=== PATIENT | male | born 1985 | race African-American/Black ===

== ENCOUNTER 2024-07-01 20:15 | Emergency (ER) | payer MEDICAID ==
[~2024-07-01] VITALS: Ht 165.1 cm; Wt 64.0 kg
[2024-07-01 20:22] VITALS: O2SAT 99
[2024-07-01 20:27] VITALS: O2SAT 99
[2024-07-01 21:36] LABS: BASOPHILS % 0.4 % (0.0-2.0); EOSINOPHILS % 6.5 % (0.0-5.0); HEMATOCRIT. 43.7 % (42.0-52.0); HEMOGLOBIN. 14.6 g/dL (14.0-18.0); LYMPHOCYTES % 31.7 % (20.0-50.0); MEAN CORPUSCULAR HEMOGLOBIN 30.5 pg (28.0-32.0); MEAN CORPUSCULAR HGB CONC 33.3 g/dL (31.0-37.0); MEAN CORPUSCULAR VOLUME 91.6 fL (80.0-94.0); MEAN PLATELET VOLUME 8.1 fl (7.4-10.4); MONOCYTES % 10.7 % (2.0-8.0); NEUTROPHILS % 50.7 % (40.0-76.0); PLATELET 225 x1000/uL (130-400); RED BLOOD CELL COUNT 4.77 mill/uL (4.7-6.1); WHITE BLOOD COUNT 9.3 x1000/uL (4.5-11.0)
[2024-07-01 21:41] LABS: CHLORIDE 111 mEq/L (98-107); POTASSIUM 4.1 mEq/L (3.5-5.1); SODIUM 144 mEq/L (136-145)
[2024-07-01 21:43] LABS: CALCIUM 9.4 mg/dL (8.7-10.4); CARBON DIOXIDE 27 mEq/L (21-32)
[2024-07-01 21:48] LABS: CREATININE 0.9 mg/dL (0.6-1.3); GLUCOSE 90 mg/dL (70-105); UREA NITROGEN BLOOD 10 mg/dL (9-23)
[2024-07-01 21:50] LABS: ALANINE AMINOTRANSFERASE 11 IU/L (10-49); ALBUMIN 4.6 g/dL (3.2-4.8); ASPARTATE AMINOTRANSFERASE 17 IU/L (<34); BILIRUBIN DIRECT 0.1 mg/dL (<=3.0); BILIRUBIN TOTAL 0.4 mg/dL (0.1-1.0); PROTEIN TOTAL 7.5 g/dL (6.0-8.3)
[2024-07-01] MEDS ORDERED: ONDANSETRON HCL 4MG/2ML INJ IV STA (22:23)
[2024-07-01] MEDS ORDERED: KETOROLAC 30MG/ML VIAL IV STA (22:23)
[2024-07-01 23:21] LABS: TROPONIN I HIGH SENSITIVITY < 4 ng/L (3.0-53)
[2024-07-02] MEDS: SODIUM CHLORIDE 0.9% 1,000 ML IV ONE (00:55)
[2024-07-02] MEDS: ONDANSETRON HCL 4MG/2ML INJ IV NR (00:56)
[2024-07-02] MEDS: KETOROLAC 30MG/ML VIAL IV NR (00:56)
[2024-07-02 01:32] LABS: CLARITY URINE CLEAR (CLEAR); COLOR URINE YELLOW (YELLOW); GLUCOSE URINE NEGATIVE (NEGATIVE); KETONES URINE NEGATIVE (NEGATIVE); LEUKOCYTE ESTERASE URINE NEGATIVE (NEGATIVE); NITRITE URINE NEGATIVE (NEGATIVE); OCCULT BLOOD URINE NEGATIVE (NEGATIVE); PH URINE 5.5 (4.5-8.0); PROTEIN URINE TRACE (NEGATIVE); SPECIFIC GRAVITY URINE 1.034 (1.005-1.030); UROBILINOGEN URINE 0.2 E.U./dL (0.2-1.0)
[2024-07-02] MEDS: MORPHINE SULFATE 4 MG/ML INJ (FOR IV/IM USE) IV ONE (01:45)
[2024-07-02] MEDS ORDERED: NAPR-681 MT (01:49)
[2024-07-02] MEDS ORDERED: BENZ100C86 MT (01:49)
[2024-07-02] MEDS ORDERED: TAMS-11 MT (01:49)
[2024-07-02 02:15] VITALS: BP 125/89; PULSE 77; RESP 16; TEMP 36.66960
[2024-07-02 02:22] LABS: RBC URINE 0-2 /hpf (0-2); SQUAMOUS EPITHELIAL CELL URINE 1+ /lpf (RARE/1+)
[2024-07-02 02:33] LABS: BACTERIA URINE TRACE
== END 2024-07-02 02:15 | disposition home or self-care (01) ==
LOC: ER 20:44
DX: N20.0 Calculus of kidney (principal); B34.9 Viral infection, unspecified; J45.909 Unspecified asthma, uncomplicated; Z79.1 Long term (current) use of non-steroidal anti-inflammatories (NSAID)
CPT/HCPCS: 99285; 74176; 71045; 80076; 80048; 85025; 86850; 86900; 86901; 84484; 93005; 96374; 96375; 96361; 81003; 36415; J7030; J1885; J2405; J2270

== ENCOUNTER 2024-12-01 14:35 | Emergency (ER) | payer MEDICAID ==
[~2024-12-01] VITALS: Ht 167.6 cm; Wt 74.8 kg
[~2024-12-01 14:35] MED LIST: BENZ100C86 MT; NAPR-681 MT; TAMS-54 MT
[2024-12-01 14:43] VITALS: TEMP 36.7; O2SAT 100
[2024-12-01 15:50] LABS: BASOPHILS % 0.3 % (0.0-2.0); EOSINOPHILS % 0.3 % (0.0-5.0); HEMATOCRIT. 47.2 % (42.0-52.0); HEMOGLOBIN. 15.6 g/dL (14.0-18.0); LYMPHOCYTES % 26.5 % (20.0-50.0); MEAN CORPUSCULAR HEMOGLOBIN 30.1 pg (28.0-32.0); MEAN CORPUSCULAR VOLUME 91.4 fL (80.0-94.0); MEAN PLATELET VOLUME 8.3 fl (7.4-10.4); MONOCYTES % 6.8 % (2.0-8.0); NEUTROPHILS % 66.1 % (40.0-76.0); PLATELET 227 x1000/uL (130-400); RED BLOOD CELL COUNT 5.16 mill/uL (4.7-6.1); RED CELL DISTRIBUTION WIDTH 13.4 % (11.6-14.6); WHITE BLOOD COUNT 11.8 x1000/uL (4.5-11.0)
[2024-12-01 15:57] LABS: CHLORIDE 107 mEq/L (98-107); POTASSIUM 4.1 mEq/L (3.5-5.1); SODIUM 141 mEq/L (136-145)
[2024-12-01 15:58] LABS: CARBON DIOXIDE 26 mEq/L (21-32)
[2024-12-01 16:03] LABS: CREATININE 1.1 mg/dL (0.6-1.3); GLUCOSE 95 mg/dL (70-105); UREA NITROGEN BLOOD 9 mg/dL (9-23)
[2024-12-01 16:05] LABS: ALANINE AMINOTRANSFERASE 11 IU/L (10-49); ALBUMIN 4.6 g/dL (3.2-4.8); ASPARTATE AMINOTRANSFERASE 18 IU/L (<34)
[2024-12-01 16:06] LABS: BILIRUBIN DIRECT 0.1 mg/dL (<=3.0); BILIRUBIN TOTAL 0.5 mg/dL (0.1-1.0)
[2024-12-01] MEDS ORDERED: BUPR1FIL7 SL (17:00)
[2024-12-01] MEDS: BUPRENORPHINE 8MG SL TABLET SL ONE (17:18)
[2024-12-01 17:36] VITALS: BP 119/75; PULSE 84; RESP 16; O2SAT 100
[2024-12-01] MEDS ORDERED: BUPR1FIL5 SL (18:29)
== END 2024-12-01 17:36 | disposition home or self-care (01) ==
LOC: ER 14:38
DX: F11.23 Opioid dependence with withdrawal (principal); J45.909 Unspecified asthma, uncomplicated; Z79.899 Other long term (current) drug therapy
CPT/HCPCS: 80076; 80048; 85025; 36415; 99283; Z7610

== ENCOUNTER 2024-12-16 09:57 | Emergency (ER) | payer MEDICAID ==
[~2024-12-16] VITALS: Ht 162.6 cm; Wt 70.0 kg
[~2024-12-16 09:57] MED LIST changes: +BUPR1FIL5 SL
[2024-12-16 10:05] VITALS: O2SAT 100
[2024-12-16] MEDS ORDERED: SULF1TAB48 MT (10:32)
[2024-12-16] MEDS ORDERED: IBUP-2028 MT (10:32)
[2024-12-16] MEDS ORDERED: BUPR1FIL5 SL (10:32)
[2024-12-16] MEDS: SULFAMETHOXAZOLE/TRIMETHOPRIM 800/160MG TABLET PO ONE (10:42)
[2024-12-16] MEDS: BUPRENORPHINE 8MG SL TABLET SL ONE (10:42)
[2024-12-16 10:45] VITALS: BP 124/72; PULSE 71; RESP 16; TEMP 36.6; O2SAT 100
[2024-12-16] MEDS: IBUPROFEN 400MG TABLET PO ONE (10:45)
== END 2024-12-16 10:46 | disposition home or self-care (01) ==
LOC: ER 09:57
DX: L03.116 Cellulitis of left lower limb (principal); J45.909 Unspecified asthma, uncomplicated; F11.20 Opioid dependence, uncomplicated; Z79.1 Long term (current) use of non-steroidal anti-inflammatories (NSAID)
CPT/HCPCS: 99284; Z7610

== ENCOUNTER 2024-12-31 05:52 | Emergency (ER) | payer MEDICAID ==
[~2024-12-31] VITALS: Ht 162.6 cm; Wt 70.0 kg
[~2024-12-31 05:52] MED LIST changes: -BUPR1FIL5 SL; +IBUP-2028 MT; +SULF1TAB48 MT
[2024-12-31 06:12] VITALS: O2SAT 100
[2024-12-31 08:19] VITALS: BP 130/79; PULSE 69; RESP 18; TEMP 36.8; O2SAT 100
[2024-12-31] MEDS: BUPRENORPHINE 8MG SL TABLET SL ONE (08:53)
[2025-01-01] MEDS ORDERED: BUPR1FIL5 SL (09:28)
== END 2024-12-31 08:56 | disposition home or self-care (01) ==
LOC: ER 05:52
DX: F11.23 Opioid dependence with withdrawal (principal); Z79.1 Long term (current) use of non-steroidal anti-inflammatories (NSAID); Z79.899 Other long term (current) drug therapy
CPT/HCPCS: 99283; Z7610

== ENCOUNTER 2025-01-01 08:54 | Emergency (ER) | payer MEDICAID ==
[~2025-01-01] VITALS: Ht 162.6 cm; Wt 71.0 kg
[2025-01-01 08:55] VITALS: O2SAT 99
[2025-01-01 09:22] VITALS: BP 109/58; PULSE 77; RESP 16; TEMP 36.7; O2SAT 97
[2025-01-01] MEDS ORDERED: BUPR1FIL5 SL (09:28)
[2025-01-01 09:38] LABS: BASOPHILS % 0.4 % (0.0-2.0); EOSINOPHILS % 2.4 % (0.0-5.0); HEMATOCRIT. 38.9 % (42.0-52.0); HEMOGLOBIN. 13.2 g/dL (14.0-18.0); LYMPHOCYTES % 49.3 % (20.0-50.0); MEAN CORPUSCULAR HEMOGLOBIN 30.7 pg (28.0-32.0); MEAN CORPUSCULAR HGB CONC 33.8 g/dL (31.0-37.0); MEAN CORPUSCULAR VOLUME 90.8 fL (80.0-94.0); MEAN PLATELET VOLUME 7.4 fl (7.4-10.4); MONOCYTES % 6.1 % (2.0-8.0); NEUTROPHILS % 41.8 % (40.0-76.0); PLATELET 229 x1000/uL (130-400); RED BLOOD CELL COUNT 4.28 mill/uL (4.7-6.1); RED CELL DISTRIBUTION WIDTH 13.5 % (11.6-14.6); WHITE BLOOD COUNT 7.4 x1000/uL (4.5-11.0)
[2025-01-01 09:48] LABS: CHLORIDE 105 mEq/L (98-107); POTASSIUM 3.6 mEq/L (3.5-5.1); SODIUM 142 mEq/L (136-145)
[2025-01-01 09:49] LABS: CALCIUM 8.7 mg/dL (8.7-10.4); CARBON DIOXIDE 28 mEq/L (21-32)
[2025-01-01 09:54] LABS: CREATININE 1.1 mg/dL (0.6-1.3); GLUCOSE 121 mg/dL (70-105); UREA NITROGEN BLOOD 10 mg/dL (9-23)
[2025-01-01] MEDS: BUPRENORPHINE 8MG SL TABLET SL ONE (10:25)
== END 2025-01-01 10:28 | disposition home or self-care (01) ==
LOC: ER 08:54
DX: F11.23 Opioid dependence with withdrawal (principal); Z79.899 Other long term (current) drug therapy
CPT/HCPCS: 80048; 85025; 36415; 99283; Z7610

== ENCOUNTER 2025-05-18 23:28 | Emergency (ER) | payer MEDICAID ==
[~2025-05-18] VITALS: Ht 162.6 cm; Wt 71.0 kg
[2025-05-18 23:35] VITALS: TEMP 36.9; O2SAT 98
[2025-05-18 23:36] VITALS: PULSE 91; RESP 18; O2SAT 98
[2025-05-19 00:14] LABS: CREATININE 1.0 mg/dL (0.6-1.3)
[2025-05-19 00:15] LABS: TROPONIN I HIGH SENSITIVITY < 4 ng/L (3.0-53); UREA NITROGEN BLOOD 9 mg/dL (9-23)
[2025-05-19 00:29] LABS: BASOPHILS % 0.4 % (0.0-2.0); EOSINOPHILS % 2.0 % (0.0-5.0); HEMATOCRIT. 43.2 % (42.0-52.0); HEMOGLOBIN. 14.1 g/dL (14.0-18.0); LYMPHOCYTES % 23.1 % (20.0-50.0); MEAN PLATELET VOLUME 8.3 fl (7.4-10.4); MONOCYTES % 6.9 % (2.0-8.0); NEUTROPHILS % 67.6 % (40.0-76.0); PLATELET 247 x1000/uL (130-400); RED BLOOD CELL COUNT 4.72 mill/uL (4.7-6.1); RED CELL DISTRIBUTION WIDTH 14.1 % (11.6-14.6)
== END 2025-05-19 00:45 | disposition left against medical advice (07) ==
LOC: ER 23:28
DX: L02.413 Cutaneous abscess of right upper limb (principal); R07.89 Other chest pain; F11.90 Opioid use, unspecified, uncomplicated; Z79.1 Long term (current) use of non-steroidal anti-inflammatories (NSAID); Z79.899 Other long term (current) drug therapy
CPT/HCPCS: 36415; 71045; 80048; 84484; 85025; 93005; 99285

== ENCOUNTER 2025-05-24 10:28 | Emergency (ER) | payer MEDICAID ==
[~2025-05-24] VITALS: Ht 172.7 cm; Wt 59.0 kg
[2025-05-24 10:34] VITALS: TEMP 37.2; O2SAT 97
[2025-05-24] MEDS: LIDOCAINE HCL 1% 20ML VIAL INFIL ONE (11:15)
[2025-05-24] MEDS: BACITRACIN ZINC OINT UDPKT TOP ONE (11:15)
[2025-05-24] MEDS ORDERED: SULF1TAB48 MT (11:51)
[2025-05-24] MEDS ORDERED: CEPH500T MT (11:51)
[2025-05-24 12:08] VITALS: BP 124/82; PULSE 69; RESP 16; O2SAT 100
== END 2025-05-24 12:10 | disposition home or self-care (01) ==
LOC: ER 10:28
DX: L02.416 Cutaneous abscess of left lower limb (principal); F17.290 Nicotine dependence, other tobacco product, uncomplicated; Z79.1 Long term (current) use of non-steroidal anti-inflammatories (NSAID); Z79.899 Other long term (current) drug therapy
CPT/HCPCS: 10060; 99283; J2003; Z7610 ×3